=== PATIENT | male | born 1960 | race Caucasian/White ===

== ENCOUNTER 2024-12-16 12:01 | Inpatient (IN) | payer OTHER ==
[~2024-12-16] VITALS: Ht 193 cm; Wt 429.8 kg
[2024-12-16] VITALS (7 sets, daily range): BP systolic 130–181; BP diastolic 81–84; PULSE 63–64; RESP 20; TEMP 97.6–98; O2SAT 88–97
[2024-12-16 13:47] LABS: BASOPHILS % 0.3 % (0.0-1.0); EOSINOPHILS # (AUTO) 0.1 (0.0-0.4); EOSINOPHILS % 1.5 % (0.0-6.0); HEMATOCRIT 25.8 % (38.2-49.6); HEMOGLOBIN 7.9 g/dL (14.0-18.0); LYMPHOCYTES % 12.2 % (18.0-39.1); MEAN CORPUSCULAR HEMOGLOBIN 28.9 pg (28-32); MEAN CORPUSCULAR HGB CONC 30.6 g/dL (31-35); MEAN CORPUSCULAR VOLUME 94.5 fL (81-99); MONOCYTES # (AUTO) 0.5 (0.2-0.8); MONOCYTES % 6.8 % (4.4-11.3); NEUTROPHILS # (AUTO) 6.1 (2.1-6.9); NEUTROPHILS % 77.4 % (38.7-80.0); PLATELET COUNT 118 x10e3/uL (140-360); RED BLOOD COUNT 2.73 x10e6/uL (4.3-5.7); RED CELL DISTRIBUTION WIDTH 14.6 % (11.7-14.4); WHITE BLOOD COUNT 7.92 x10e3/uL (4.8-10.8)
[2024-12-16 14:18] LABS: ALBUMIN 3.1 g/dL (3.5-5.0); ALBUMIN/GLOBULIN RATIO 1.1 (0.8-2.0); ANION GAP 13.6 mmol/L (8-16); BILIRUBIN,TOTAL 0.4 mg/dL (0.2-1.2); CALCIUM 8.1 mg/dL (8.4-10.2); CREATININE, SERUM 2.66 mg/dL (0.72-1.25); POTASSIUM 4.6 mmol/L (3.5-5.1); TOTAL PROTEIN 5.8 g/dL (6.5-8.1)
[2024-12-16 14:25] LABS: TROPONIN I 0.016 ng/mL (0-0.300)
[2024-12-16] MEDS: FUROSEMIDE INJ 10 MG/ML 2 ML VIAL IV ONE (17:34)
[2024-12-16] MEDS ORDERED: ONDANSETRON HCL INJ 2MG/ML 2ML 2 MG/ML VIAL IV PRN (18:00)
[2024-12-16] MEDS ORDERED: ALPRAZOLAM 1 MG TAB PO PRN (21:00)
[2024-12-16] MEDS ORDERED: ONDANSETRON HCL 4 MG ORAL DISINTEGRATING TAB PO PRN (21:15)
[2024-12-16] MEDS ORDERED: FAMOTIDINE 20 MG TAB PO PRN (21:15)
[2024-12-16] MEDS: FUROSEMIDE INJ 10 MG/ML 4 ML VIAL IV SCH (21:42)
[2024-12-16] MEDS: ATORVASTATIN 40 MG TAB PO SCH (21:43)
[2024-12-16] MEDS: INSULIN GLARGINE 100 UNITS/ML VIAL SQ SCH (21:44)
[2024-12-17] VITALS (17 sets, daily range): BP systolic 148–191; BP diastolic 72–94; PULSE 58–76; RESP 12–20; TEMP 97.5–98.1; O2SAT 92–100
[2024-12-17 01:12] LABS: FERRITIN 85.53 ng/mL (21.81-274.66)
[2024-12-17 01:25] LABS: FOLATE 6.5 ng/mL (7.0-15.4)
[2024-12-17 06:43] LABS: BASOPHILS % 0.5 % (0.0-1.0); EOSINOPHILS # (AUTO) 0.1 (0.0-0.4); EOSINOPHILS % 1.1 % (0.0-6.0); HEMATOCRIT 28.9 % (38.2-49.6); HEMOGLOBIN 8.9 g/dL (14.0-18.0); LYMPHOCYTES # (AUTO) 0.7 (1.0-3.2); MEAN CORPUSCULAR HEMOGLOBIN 28.8 pg (28-32); MEAN CORPUSCULAR HGB CONC 30.8 g/dL (31-35); MEAN CORPUSCULAR VOLUME 93.5 fL (81-99); MONOCYTES # (AUTO) 0.4 (0.2-0.8); MONOCYTES % 5.1 % (4.4-11.3); NEUTROPHILS # (AUTO) 7.1 (2.1-6.9); NEUTROPHILS % 83.7 % (38.7-80.0); PLATELET COUNT 114 x10e3/uL (140-360); RED BLOOD COUNT 3.09 x10e6/uL (4.3-5.7); RED CELL DISTRIBUTION WIDTH 14.6 % (11.7-14.4); WHITE BLOOD COUNT 8.49 x10e3/uL (4.8-10.8)
[2024-12-17 07:15] LABS: ALBUMIN 3.2 g/dL (3.5-5.0); ANION GAP 14.1 mmol/L (8-16); BILIRUBIN,TOTAL 0.6 mg/dL (0.2-1.2); CALCIUM 8.5 mg/dL (8.4-10.2); CREATININE, SERUM 2.57 mg/dL (0.72-1.25); MAGNESIUM 2.1 MG/DL (1.3-2.1); POTASSIUM 4.1 mmol/L (3.5-5.1); TOTAL PROTEIN 6.4 g/dL (6.5-8.1)
[2024-12-17] MEDS ORDERED: POTASSIUM CHLORIDE 20 MEQ TAB CR PO SCH (09:00)
[2024-12-17] MEDS: CARVEDILOL 12.5 MG TAB PO SCH (10:09)
[2024-12-17] MEDS: CYANOCOBALAMIN 1,000 MCG TAB PO SCH (10:09)
[2024-12-17] MEDS: FOLIC ACID 1 MG TAB PO SCH (10:09)
[2024-12-17] MEDS: CLOPIDOGREL BISULFATE 75 MG TAB PO SCH (10:10)
[2024-12-17] MEDS: AMLODIPINE BESYLATE 10 MG TAB PO SCH (10:10)
[2024-12-17] MEDS: ASPIRIN 81 MG CHEW TAB PO SCH (10:10)
[2024-12-17] MEDS: FLUOXETINE HCL 20 MG CAP PO SCH (10:10)
[2024-12-17] MEDS: DOCUSATE SODIUM 100 MG CAP PO SCH (10:10)
[2024-12-17] MEDS: FERROUS SULFATE 325 MG TAB PO SCH (10:10)
[2024-12-17] MEDS: FUROSEMIDE INJ 10 MG/ML 4 ML VIAL IV STA (10:17)
[2024-12-17] MEDS: BUMETANIDE 10 MG in SODIUM CHLORIDE 0.9% 60 ML IV SCH (10:38)
[2024-12-17 12:34] LABS: ABG HCO3 30 mmol/L (22-26); ABG PCO2 59 mmHg (35-45); ABG PH 7.32 (7.35-7.45); ABG PO2 62 mmHg (80-105); ABG TCO2 32
[2024-12-17] MEDS: ALPRAZOLAM 1 MG TAB PO PRN (15:07)
[2024-12-17] MEDS: HEPARIN SOD (PORCINE) 5,000 UNIT/ML VIAL SC SCH (15:07)
[2024-12-17] MEDS: DEXMEDETOMIDINE 400MCG/NS100ML 100 ML IV PRN (20:34)
[2024-12-18] VITALS (34 sets, daily range): BP systolic 145–200; BP diastolic 67–99; PULSE 53–78; RESP 11–23; TEMP 97.9–98.4; O2SAT 86–100
[2024-12-18 07:12] LABS: BASOPHILS % 0.2 % (0.0-1.0); EOSINOPHILS % 0.7 % (0.0-6.0); HEMATOCRIT 27.1 % (38.2-49.6); HEMOGLOBIN 8.5 g/dL (14.0-18.0); LYMPHOCYTES # (AUTO) 0.7 (1.0-3.2); LYMPHOCYTES % 10.7 % (18.0-39.1); MEAN CORPUSCULAR HGB CONC 31.4 g/dL (31-35); MEAN CORPUSCULAR VOLUME 92.5 fL (81-99); MONOCYTES # (AUTO) 0.4 (0.2-0.8); NEUTROPHILS % 80.7 % (38.7-80.0); PLATELET COUNT 102 x10e3/uL (140-360); RED BLOOD COUNT 2.93 x10e6/uL (4.3-5.7); RED CELL DISTRIBUTION WIDTH 14.2 % (11.7-14.4); WHITE BLOOD COUNT 6.14 x10e3/uL (4.8-10.8)
[2024-12-18 07:36] LABS: ALBUMIN 2.9 g/dL (3.5-5.0); ALBUMIN/GLOBULIN RATIO 0.9 (0.8-2.0); ANION GAP 13.7 mmol/L (8-16); BILIRUBIN,TOTAL 0.6 mg/dL (0.2-1.2); CALCIUM 8.5 mg/dL (8.4-10.2); CREATININE, SERUM 2.3 mg/dL (0.72-1.25); MAGNESIUM 2.2 MG/DL (1.3-2.1); PHOSPHORUS 4.2 MG/DL (2.3-4.7); POTASSIUM 3.7 mmol/L (3.5-5.1)
[2024-12-18] MEDS: POTASSIUM CHLORIDE 20 MEQ TAB CR PO ONE (08:39)
[2024-12-18] MEDS: BUMETANIDE 10 MG in SODIUM CHLORIDE 0.9% 60 ML IV SCH (10:22)
[2024-12-18 10:34] LABS: INR 1.09; PROTHROMBIN TIME 14.8 seconds (11.9-14.5)
[2024-12-18] MEDS: HYDRALAZINE HCL 20 MG/ML VIAL IV PRN (12:33)
[2024-12-18 13:16] LABS: TOTAL PROTEIN, URINE 69.9 mg/dL (1-14)
[2024-12-18 14:05] LABS: BODY FLUID APPEARANCE CLOUDY; BODY FLUID COLOR YELLOW; BODY FLUID TYPE PLEURAL; RBC,BODY FLUID 2000 cells/uL; WBC,BODY FLUID 79 cells/uL
[2024-12-18 14:10] LABS: LYMPHOCYTES,BODY FLUID 54 %; MONO/MACROPHG,BODY FLUID 31 %; NEUTROPHILS,BODY FLUID 3 %; OTHER CELLS,BODY FLUID 12 %; TOTAL CELLS COUNTED (DIFF) 100
[2024-12-18] MEDS: HYDRALAZINE HCL 20 MG/ML VIAL IV ONE (15:47)
[2024-12-19] VITALS (23 sets, daily range): BP systolic 139–179; BP diastolic 60–84; PULSE 57–71; RESP 11–25; TEMP 97.9–98.4; O2SAT 96–100
[2024-12-19 07:24] LABS: BASOPHILS % 0.4 % (0.0-1.0); EOSINOPHILS % 0.8 % (0.0-6.0); HEMOGLOBIN 8.3 g/dL (14.0-18.0); LYMPHOCYTES # (AUTO) 0.7 (1.0-3.2); LYMPHOCYTES % 12.4 % (18.0-39.1); MEAN CORPUSCULAR HEMOGLOBIN 28.4 pg (28-32); MEAN CORPUSCULAR HGB CONC 31.9 g/dL (31-35); MONOCYTES # (AUTO) 0.4 (0.2-0.8); MONOCYTES % 7.1 % (4.4-11.3); NEUTROPHILS # (AUTO) 4.1 (2.1-6.9); NEUTROPHILS % 78.7 % (38.7-80.0); PLATELET COUNT 108 x10e3/uL (140-360); RED BLOOD COUNT 2.92 x10e6/uL (4.3-5.7); RED CELL DISTRIBUTION WIDTH 14.6 % (11.7-14.4); WHITE BLOOD COUNT 5.23 x10e3/uL (4.8-10.8)
[2024-12-19 07:51] LABS: PHOSPHORUS 3.6 MG/DL (2.3-4.7)
[2024-12-19 07:54] LABS: ALBUMIN 2.7 g/dL (3.5-5.0); ALBUMIN/GLOBULIN RATIO 0.9 (0.8-2.0); ANION GAP 11.5 mmol/L (8-16); BILIRUBIN,TOTAL 0.7 mg/dL (0.2-1.2); CALCIUM 8.6 mg/dL (8.4-10.2); CREATININE, SERUM 2.16 mg/dL (0.72-1.25); POTASSIUM 3.5 mmol/L (3.5-5.1); TOTAL PROTEIN 5.7 g/dL (6.5-8.1)
[2024-12-19 08:13] LABS: ABG HCO3 30 mmol/L (22-26); ABG PCO2 59 mmHg (35-45); ABG PH 7.32 (7.35-7.45); ABG PO2 62 mmHg (80-105); ABG TCO2 32
[2024-12-19 08:57] LABS: CREATININE,URINE RANDOM 22.27 mg/dL (63-166)
[2024-12-19] MEDS: HYDRALAZINE HCL 25 MG TAB PO SCH (09:00)
[2024-12-19] MEDS: ACETAMINOPHEN 325 MG TAB PO PRN (11:56)
[2024-12-19] MEDS: POTASSIUM CHLORIDE 20MEQ/100ML 200 ML IV ONE (11:57)
[2024-12-19 13:53] LABS: TOTAL PROTEIN,BODY FLUID 1.5 g/dL
[2024-12-19] MEDS: BUMETANIDE 1 MG TAB PO SCH (15:26)
[2024-12-19] MEDS: ALPRAZOLAM 0.5 MG TAB PO PRN (20:12)
[2024-12-19] MEDS: MELATONIN 5 MG TABLET PO PRN (23:51)
[2024-12-20] VITALS (31 sets, daily range): BP systolic 140–208; BP diastolic 58–88; PULSE 53–82; RESP 8–22; TEMP 97.2–98.4; O2SAT 91–99
[2024-12-20 06:55] LABS: HEMATOCRIT 24.8 % (38.2-49.6); HEMOGLOBIN 7.9 g/dL (14.0-18.0); MEAN CORPUSCULAR HEMOGLOBIN 28.7 pg (28-32); MEAN CORPUSCULAR HGB CONC 31.9 g/dL (31-35); MEAN CORPUSCULAR VOLUME 90.2 fL (81-99); NEUTROPHILS % 75.4 % (38.7-80.0); PLATELET COUNT 112 x10e3/uL (140-360); RED BLOOD COUNT 2.7 x10e6/uL (4.3-5.7); RED CELL DISTRIBUTION WIDTH 14.3 % (11.7-14.4); WHITE BLOOD COUNT 5.84 x10e3/uL (4.8-10.8)
[2024-12-20 06:56] LABS: BASOPHILS % 0.3 % (0.0-1.0); EOSINOPHILS # (AUTO) 0.2 (0.0-0.4); EOSINOPHILS % 3.3 % (0.0-6.0); LYMPHOCYTES # (AUTO) 0.8 (1.0-3.2); LYMPHOCYTES % 13.9 % (18.0-39.1); MONOCYTES # (AUTO) 0.4 (0.2-0.8); MONOCYTES % 6.8 % (4.4-11.3); NEUTROPHILS # (AUTO) 4.4 (2.1-6.9)
[2024-12-20 07:44] LABS: ANION GAP 12.4 mmol/L (8-16); POTASSIUM 3.4 mmol/L (3.5-5.1)
[2024-12-20 07:45] LABS: ALBUMIN 2.5 g/dL (3.5-5.0); ALBUMIN/GLOBULIN RATIO 0.8 (0.8-2.0); BILIRUBIN,TOTAL 0.6 mg/dL (0.2-1.2); BLOOD UREA NITROGEN 22.68 mg/dL (7-26); CALCIUM 8.7 mg/dL (8.4-10.2); CREATININE, SERUM 2.16 mg/dL (0.72-1.25); MAGNESIUM 1.9 MG/DL (1.3-2.1); TOTAL PROTEIN 5.6 g/dL (6.5-8.1)
[2024-12-20] MEDS: ISOSORBIDE DINITRATE 20 MG TAB PO SCH (10:35)
[2024-12-20] MEDS: POTASSIUM CHLORIDE 20MEQ/100ML 200 ML IV ONE (10:38)
[2024-12-20] MEDS: BUMETANIDE 10 MG in SODIUM CHLORIDE 0.9% 60 ML IV SCH (10:59)
[2024-12-20] MEDS: OXYMETAZOLINE HCL 0.05% NAS 1 SPRAY BTL SCH (11:16)
[2024-12-20] MEDS: CLONIDINE HCL 0.1 MG TAB PO PRN (18:04)
[2024-12-20] MEDS: QUETIAPINE FUMARATE 100 MG TAB PO SCH (20:20)
[2024-12-20] MEDS ORDERED: CLONIDINE HCL 0.1 MG TAB PO PRN (22:00)
[2024-12-20] MEDS: CLONIDINE HCL 0.2 MG TAB PO SCH (22:44)
[2024-12-21] VITALS (28 sets, daily range): BP systolic 140–218; BP diastolic 65–101; PULSE 51–70; RESP 9–21; TEMP 97.8–98.1; O2SAT 86–100
[2024-12-21 07:44] LABS: BASOPHILS % 0.4 % (0.0-1.0); EOSINOPHILS # (AUTO) 0.2 (0.0-0.4); EOSINOPHILS % 3.6 % (0.0-6.0); LYMPHOCYTES # (AUTO) 0.7 (1.0-3.2); LYMPHOCYTES % 13.2 % (18.0-39.1); MEAN CORPUSCULAR HEMOGLOBIN 28.3 pg (28-32); MEAN CORPUSCULAR HGB CONC 32.5 g/dL (31-35); MEAN CORPUSCULAR VOLUME 87.1 fL (81-99); MONOCYTES # (AUTO) 0.4 (0.2-0.8); MONOCYTES % 7.3 % (4.4-11.3); NEUTROPHILS % 74.9 % (38.7-80.0); PLATELET COUNT 122 x10e3/uL (140-360); RED BLOOD COUNT 3.11 x10e6/uL (4.3-5.7); RED CELL DISTRIBUTION WIDTH 14.5 % (11.7-14.4); WHITE BLOOD COUNT 5.32 x10e3/uL (4.8-10.8)
[2024-12-21 07:53] LABS: ALBUMIN 2.8 g/dL (3.5-5.0); ALBUMIN/GLOBULIN RATIO 0.8 (0.8-2.0); ANION GAP 13.4 mmol/L (8-16); BILIRUBIN,TOTAL 0.6 mg/dL (0.2-1.2); CALCIUM 9.3 mg/dL (8.4-10.2); CREATININE, SERUM 2.1 mg/dL (0.72-1.25); TOTAL PROTEIN 6.3 g/dL (6.5-8.1)
[2024-12-21 07:56] LABS: HEMATOCRIT 27.4 % (38.2-49.6); HEMOGLOBIN 8.9 g/dL (14.0-18.0)
[2024-12-21 08:27] LABS: POTASSIUM 3.4 mmol/L (3.5-5.1)
[2024-12-21] MEDS: HYDRALAZINE HCL 100 MG TABLET PO SCH (20:29)
[2024-12-21] MEDS ORDERED: Morphine 2mg Syringe 2 MG/ML SYR IV PRN (22:30)
[2024-12-22] VITALS (27 sets, daily range): BP systolic 103–169; BP diastolic 57–81; PULSE 56–65; RESP 10–19; TEMP 98–98.5; O2SAT 93–100
[2024-12-22 06:21] LABS: BASOPHILS % 0.5 % (0.0-1.0); EOSINOPHILS # (AUTO) 0.2 (0.0-0.4); EOSINOPHILS % 4.7 % (0.0-6.0); HEMATOCRIT 22.8 % (38.2-49.6); HEMOGLOBIN 7.4 g/dL (14.0-18.0); LYMPHOCYTES # (AUTO) 0.7 (1.0-3.2); LYMPHOCYTES % 19.1 % (18.0-39.1); MEAN CORPUSCULAR HEMOGLOBIN 28.6 pg (28-32); MEAN CORPUSCULAR HGB CONC 32.5 g/dL (31-35); MONOCYTES # (AUTO) 0.3 (0.2-0.8); MONOCYTES % 7.6 % (4.4-11.3); NEUTROPHILS # (AUTO) 2.6 (2.1-6.9); NEUTROPHILS % 68.1 % (38.7-80.0); PLATELET COUNT 99 x10e3/uL (140-360); RED BLOOD COUNT 2.59 x10e6/uL (4.3-5.7); RED CELL DISTRIBUTION WIDTH 14.1 % (11.7-14.4); WHITE BLOOD COUNT 3.83 x10e3/uL (4.8-10.8)
[2024-12-22 06:55] LABS: ALBUMIN 2.5 g/dL (3.5-5.0); ALBUMIN/GLOBULIN RATIO 0.9 (0.8-2.0); ANION GAP 13.4 mmol/L (8-16); BILIRUBIN,TOTAL 0.4 mg/dL (0.2-1.2); CREATININE, SERUM 2.19 mg/dL (0.72-1.25); TOTAL PROTEIN 5.4 g/dL (6.5-8.1)
[2024-12-22 07:00] LABS: POTASSIUM 3.4 mmol/L (3.5-5.1)
[2024-12-23] VITALS (30 sets, daily range): BP systolic 135–165; BP diastolic 57–80; PULSE 52–60; RESP 9–17; TEMP 97.8–98.3; O2SAT 92–100
[2024-12-23 06:10] LABS: BASOPHILS % 0.4 % (0.0-1.0); EOSINOPHILS # (AUTO) 0.2 (0.0-0.4); EOSINOPHILS % 4.4 % (0.0-6.0); HEMATOCRIT 24.6 % (38.2-49.6); HEMOGLOBIN 8.1 g/dL (14.0-18.0); LYMPHOCYTES # (AUTO) 0.7 (1.0-3.2); MEAN CORPUSCULAR HEMOGLOBIN 28.6 pg (28-32); MEAN CORPUSCULAR HGB CONC 32.9 g/dL (31-35); MEAN CORPUSCULAR VOLUME 86.9 fL (81-99); MONOCYTES # (AUTO) 0.3 (0.2-0.8); MONOCYTES % 6.5 % (4.4-11.3); NEUTROPHILS # (AUTO) 3.4 (2.1-6.9); NEUTROPHILS % 73.5 % (38.7-80.0); PLATELET COUNT 102 x10e3/uL (140-360); RED BLOOD COUNT 2.83 x10e6/uL (4.3-5.7); RED CELL DISTRIBUTION WIDTH 13.8 % (11.7-14.4); WHITE BLOOD COUNT 4.59 x10e3/uL (4.8-10.8)
[2024-12-23 06:31] LABS: ANION GAP 12.3 mmol/L (8-16); CALCIUM 9.1 mg/dL (8.4-10.2); CREATININE, SERUM 2.07 mg/dL (0.72-1.25)
[2024-12-23 06:32] LABS: POTASSIUM 3.3 mmol/L (3.5-5.1)
[2024-12-23] MEDS: POTASSIUM CHLORIDE 20 MEQ TAB CR PO STA (07:34)
[2024-12-23] MEDS: POLYETHYLENE GLYCOL 3350 17 GM PACK PO SCH (10:12)
[2024-12-23] MEDS: SPIRONOLACTONE 25 MG TAB PO ONE (11:25)
[2024-12-23] MEDS: POTASSIUM CHLORIDE 20MEQ/100ML 200 ML IV ONE (11:26)
[2024-12-23] MEDS: ALPRAZOLAM 0.5 MG TAB PO PRN (20:37)
[2024-12-24] VITALS (26 sets, daily range): BP systolic 107–175; BP diastolic 61–103; PULSE 51–59; RESP 8–22; TEMP 97.8–98.2; O2SAT 87–100
[2024-12-24 07:04] LABS: BASOPHILS % 0.4 % (0.0-1.0); EOSINOPHILS # (AUTO) 0.2 (0.0-0.4); EOSINOPHILS % 3.9 % (0.0-6.0); HEMATOCRIT 24.9 % (38.2-49.6); HEMOGLOBIN 8.2 g/dL (14.0-18.0); LYMPHOCYTES # (AUTO) 0.7 (1.0-3.2); LYMPHOCYTES % 14.8 % (18.0-39.1); MEAN CORPUSCULAR HEMOGLOBIN 28.5 pg (28-32); MEAN CORPUSCULAR HGB CONC 32.9 g/dL (31-35); MEAN CORPUSCULAR VOLUME 86.5 fL (81-99); MONOCYTES # (AUTO) 0.3 (0.2-0.8); MONOCYTES % 6.5 % (4.4-11.3); NEUTROPHILS # (AUTO) 3.7 (2.1-6.9); NEUTROPHILS % 74.2 % (38.7-80.0); PLATELET COUNT 103 x10e3/uL (140-360); RED BLOOD COUNT 2.88 x10e6/uL (4.3-5.7); RED CELL DISTRIBUTION WIDTH 13.8 % (11.7-14.4); WHITE BLOOD COUNT 4.92 x10e3/uL (4.8-10.8)
[2024-12-24 07:27] LABS: ALBUMIN 2.7 g/dL (3.5-5.0); ALBUMIN/GLOBULIN RATIO 0.8 (0.8-2.0); ANION GAP 13.7 mmol/L (8-16); BILIRUBIN,TOTAL 0.4 mg/dL (0.2-1.2); CALCIUM 9.3 mg/dL (8.4-10.2); CREATININE, SERUM 2.21 mg/dL (0.72-1.25); MAGNESIUM 2.1 MG/DL (1.3-2.1); PHOSPHORUS 4.3 MG/DL (2.3-4.7); POTASSIUM 3.7 mmol/L (3.5-5.1); TOTAL PROTEIN 5.9 g/dL (6.5-8.1)
[2024-12-24] MEDS: BISACODYL 10 MG SUPP PR ONE (08:55)
[2024-12-24] MEDS: SPIRONOLACTONE 25 MG TAB PO SCH (08:57)
[2024-12-24] MEDS: METOLAZONE 5 MG TAB PO SCH (08:57)
[2024-12-25] VITALS (18 sets, daily range): BP systolic 124–175; BP diastolic 66–101; PULSE 50–74; RESP 10–23; TEMP 97.4–98; O2SAT 81–100
[2024-12-25 07:00] LABS: BASOPHILS % 0.4 % (0.0-1.0); EOSINOPHILS # (AUTO) 0.2 (0.0-0.4); EOSINOPHILS % 3.8 % (0.0-6.0); HEMATOCRIT 27.5 % (38.2-49.6); LYMPHOCYTES # (AUTO) 0.7 (1.0-3.2); LYMPHOCYTES % 15.1 % (18.0-39.1); MEAN CORPUSCULAR HEMOGLOBIN 28.3 pg (28-32); MEAN CORPUSCULAR HGB CONC 32.7 g/dL (31-35); MEAN CORPUSCULAR VOLUME 86.5 fL (81-99); MONOCYTES # (AUTO) 0.4 (0.2-0.8); MONOCYTES % 8.4 % (4.4-11.3); NEUTROPHILS # (AUTO) 3.4 (2.1-6.9); NEUTROPHILS % 71.9 % (38.7-80.0); PLATELET COUNT 114 x10e3/uL (140-360); RED BLOOD COUNT 3.18 x10e6/uL (4.3-5.7); RED CELL DISTRIBUTION WIDTH 13.5 % (11.7-14.4); WHITE BLOOD COUNT 4.77 x10e3/uL (4.8-10.8)
[2024-12-25 07:22] LABS: ALBUMIN 2.9 g/dL (3.5-5.0); ALBUMIN/GLOBULIN RATIO 0.9 (0.8-2.0); ANION GAP 14.5 mmol/L (8-16); BILIRUBIN,TOTAL 0.5 mg/dL (0.2-1.2); CALCIUM 10.1 mg/dL (8.4-10.2); CREATININE, SERUM 2.41 mg/dL (0.72-1.25); POTASSIUM 3.5 mmol/L (3.5-5.1); TOTAL PROTEIN 6.3 g/dL (6.5-8.1)
[2024-12-25] MEDS: BUMETANIDE INJ 0.25MG/ML 4ML VIAL IV SCH (10:33)
[2024-12-25] MEDS: TRAMADOL HCL 50 MG TAB PO PRN (17:05)
[2024-12-26] VITALS (10 sets, daily range): BP systolic 134–161; BP diastolic 65–77; PULSE 53–68; RESP 16–20; TEMP 97.3–98; O2SAT 95–100
[2024-12-26 05:50] LABS: BASOPHILS % 0.4 % (0.0-1.0); EOSINOPHILS # (AUTO) 0.2 (0.0-0.4); EOSINOPHILS % 3.2 % (0.0-6.0); HEMATOCRIT 25.9 % (38.2-49.6); HEMOGLOBIN 8.5 g/dL (14.0-18.0); LYMPHOCYTES # (AUTO) 0.8 (1.0-3.2); MEAN CORPUSCULAR HEMOGLOBIN 27.8 pg (28-32); MEAN CORPUSCULAR HGB CONC 32.8 g/dL (31-35); MEAN CORPUSCULAR VOLUME 84.6 fL (81-99); MONOCYTES # (AUTO) 0.4 (0.2-0.8); NEUTROPHILS % 74.2 % (38.7-80.0); PLATELET COUNT 123 x10e3/uL (140-360); RED BLOOD COUNT 3.06 x10e6/uL (4.3-5.7); RED CELL DISTRIBUTION WIDTH 13.5 % (11.7-14.4); WHITE BLOOD COUNT 5.37 x10e3/uL (4.8-10.8)
[2024-12-26 06:26] LABS: ALBUMIN 2.7 g/dL (3.5-5.0); ALBUMIN/GLOBULIN RATIO 0.8 (0.8-2.0); ANION GAP 17.5 mmol/L (8-16); BILIRUBIN,TOTAL 0.5 mg/dL (0.2-1.2); CALCIUM 9.9 mg/dL (8.4-10.2); CREATININE, SERUM 2.77 mg/dL (0.72-1.25); MAGNESIUM 2.3 MG/DL (1.3-2.1); POTASSIUM 3.5 mmol/L (3.5-5.1)
[2024-12-26] MEDS: BUMETANIDE 1 MG TAB PO SCH (10:42)
[2024-12-26] MEDS: AMLODIPINE BESYLATE 10 MG TAB PO SCH (11:37)
[2024-12-27] VITALS (9 sets, daily range): BP systolic 100–161; BP diastolic 59–77; PULSE 50–56; RESP 17–20; TEMP 97.3–98.4; O2SAT 92–100
[2024-12-27 06:12] LABS: ANION GAP 13.4 mmol/L (8-16); CALCIUM 9.5 mg/dL (8.4-10.2); CREATININE, SERUM 2.91 mg/dL (0.72-1.25)
[2024-12-27 06:14] LABS: POTASSIUM 3.4 mmol/L (3.5-5.1)
[2024-12-27] MEDS: MUPIROCIN 2% OINT 22 GM TUBE TOP SCH (09:00)
[2024-12-27] MEDS: CLOTRIMAZOLE/BETAMETHASONE 45 GM CR TP SCH (09:27)
[2024-12-28] VITALS (9 sets, daily range): BP systolic 114–148; BP diastolic 55–72; PULSE 52–60; RESP 18–20; TEMP 97.4–98.6; O2SAT 92–98
[2024-12-28 06:46] LABS: ANION GAP 16.4 mmol/L (8-16); CALCIUM 9.7 mg/dL (8.4-10.2); CREATININE, SERUM 3.21 mg/dL (0.72-1.25)
[2024-12-28 06:53] LABS: POTASSIUM 3.4 mmol/L (3.5-5.1)
[2024-12-28] MEDS: BUMETANIDE 1 MG TAB PO SCH (09:21)
[2024-12-28] MEDS: SODIUM CHLORIDE 0.9% 250ML 250 ML IV ONE (11:35)
[2024-12-29] VITALS (11 sets, daily range): BP systolic 107–156; BP diastolic 63–75; PULSE 53–63; RESP 18–21; TEMP 97.3–98.2; O2SAT 94–100
[2024-12-29 05:33] LABS: BASOPHILS % 0.2 % (0.0-1.0); EOSINOPHILS # (AUTO) 0.2 (0.0-0.4); EOSINOPHILS % 3.6 % (0.0-6.0); HEMATOCRIT 26.9 % (38.2-49.6); LYMPHOCYTES % 20.9 % (18.0-39.1); MEAN CORPUSCULAR HGB CONC 33.5 g/dL (31-35); MEAN CORPUSCULAR VOLUME 83.8 fL (81-99); MONOCYTES # (AUTO) 0.5 (0.2-0.8); MONOCYTES % 11.1 % (4.4-11.3); PLATELET COUNT 166 x10e3/uL (140-360); RED BLOOD COUNT 3.21 x10e6/uL (4.3-5.7); RED CELL DISTRIBUTION WIDTH 13.2 % (11.7-14.4); WHITE BLOOD COUNT 4.69 x10e3/uL (4.8-10.8)
[2024-12-29 06:01] LABS: ALBUMIN 2.8 g/dL (3.5-5.0); ALBUMIN/GLOBULIN RATIO 0.8 (0.8-2.0); BILIRUBIN,TOTAL 0.4 mg/dL (0.2-1.2); CALCIUM 9.4 mg/dL (8.4-10.2); CREATININE, SERUM 3.27 mg/dL (0.72-1.25); POTASSIUM 3.5 mmol/L (3.5-5.1); TOTAL PROTEIN 6.1 g/dL (6.5-8.1)
[2024-12-29 06:10] LABS: ANION GAP 16.5 mmol/L (8-16)
[2024-12-29] MEDS: HEPARIN SOD (PORCINE) 5,000 UNIT/ML VIAL SC SCH (17:01)
[2024-12-30] VITALS (10 sets, daily range): BP systolic 117–147; BP diastolic 55–72; PULSE 51–89; RESP 17–20; TEMP 97.6–98.3; O2SAT 95–99
[2024-12-30 07:09] LABS: ALBUMIN 2.9 g/dL (3.5-5.0); ALBUMIN/GLOBULIN RATIO 0.9 (0.8-2.0); ANION GAP 17.4 mmol/L (8-16); BILIRUBIN,TOTAL 0.4 mg/dL (0.2-1.2); CALCIUM 9.5 mg/dL (8.4-10.2); CREATININE, SERUM 3.32 mg/dL (0.72-1.25); MAGNESIUM 2.5 MG/DL (1.3-2.1); TOTAL PROTEIN 6.2 g/dL (6.5-8.1)
[2024-12-30 07:12] LABS: POTASSIUM 3.4 mmol/L (3.5-5.1)
[2024-12-30] MEDS: SODIUM CHLORIDE 0.9% 500ML 500 ML IV ONE (10:00)
[2024-12-30] MEDS: BUMETANIDE 1 MG TAB PO SCH (16:04)
[2024-12-30] MEDS ORDERED: Ferrous Sulfate PO (16:23)
[2024-12-30] MEDS ORDERED: Insulin Glargine SQ (16:23)
[2024-12-30] MEDS ORDERED: MUPIROCIN22 GM TOP (16:23)
[2024-12-30] MEDS ORDERED: LASIX20 MG PO (16:23)
[2024-12-30] MEDS ORDERED: HYDRALAZINE HC100 MG PO (16:23)
[2024-12-30] MEDS ORDERED: NORVASC10 MG PO (16:23)
[2024-12-30] MEDS ORDERED: COREG12.5 MG PO (16:23)
[2024-12-30] MEDS ORDERED: PLAVIX75 MG PO (16:23)
[2024-12-30] MEDS ORDERED: SEROQUEL100 MG PO (16:23)
[2024-12-30] MEDS ORDERED: CLONIDINE HCL0.2 MG PO (16:23)
[2024-12-30] MEDS ORDERED: FLUOXETINE HCL20 MG PO (16:23)
[2024-12-30] MEDS ORDERED: ISORDIL20 MG PO (16:23)
[2024-12-30] MEDS ORDERED: MIRALAX17 GM PO (16:23)
[2024-12-30] MEDS ORDERED: CLOTRIMAZOLE-BE15 GM TP (16:23)
[2024-12-30] MEDS ORDERED: ASPIRIN CHEW81 MG PO (16:23)
[2024-12-30] MEDS ORDERED: ACETAMINOPHEN325 M1 PO (16:23)
[2024-12-30] MEDS ORDERED: Folic Acid PO (16:23)
[2024-12-30] MEDS ORDERED: B-121000 MC1 PO (16:23)
[2024-12-30] MEDS ORDERED: Docusate Sodium PO (16:23)
[2024-12-30] MEDS ORDERED: FEROSUL325 MG PO (16:24)
[2024-12-30] MEDS ORDERED: LANTUS 3ML100 UNITS/ SC (16:24)
== END 2024-12-30 22:54 | DRG 291 ==
LOC: ER 12:11 → ERHOLD 17:54 → MED/SURG3 19:48 → ICU 12-17 12:38 → MED/SURG2 12-25 13:47
PROVIDERS: ADMIT Family Medicine Adult Medicine; ATTEND Family Medicine Adult Medicine
PROC: 4A133R1 Monitoring of Arterial Saturation, Peripheral, Percutaneous Approach (ICD-10-PCS; principal; 2024-12-17)
PROC: 0T9B70Z Drainage of Bladder with Drainage Device, Via Natural or Artificial Opening (ICD-10-PCS; 2024-12-17)
PROC: 5A09357 Assistance with Respiratory Ventilation, Less than 24 Consecutive Hours, Continuous Positive Airway Pressure (ICD-10-PCS; 2024-12-17)
PROC: 0W993ZZ Drainage of Right Pleural Cavity, Percutaneous Approach (ICD-10-PCS; 2024-12-18)
PROC: 5A0935A Assistance with Respiratory Ventilation, Less than 24 Consecutive Hours, High Flow/Velocity Cannula (ICD-10-PCS; 2024-12-19)
DX: I13.0 Hypertensive heart and chronic kidney disease with heart failure and stage 1 through stage 4 chronic kidney disease, or unspecified chronic kidney disease (principal); I50.43 Acute on chronic combined systolic (congestive) and diastolic (congestive) heart failure; J96.02 Acute respiratory failure with hypercapnia; J96.01 Acute respiratory failure with hypoxia; J18.9 Pneumonia, unspecified organism; J90 Pleural effusion, not elsewhere classified; J44.1 Chronic obstructive pulmonary disease with (acute) exacerbation; N17.9 Acute kidney failure, unspecified; E66.2 Morbid (severe) obesity with alveolar hypoventilation; Z68.42 Body mass index [BMI] 45.0-49.9, adult; I27.20 Pulmonary hypertension, unspecified; Z99.81 Dependence on supplemental oxygen; E11.22 Type 2 diabetes mellitus with diabetic chronic kidney disease; N18.32 Chronic kidney disease, stage 3b; E11.65 Type 2 diabetes mellitus with hyperglycemia; D63.1 Anemia in chronic kidney disease; I25.10 Atherosclerotic heart disease of native coronary artery without angina pectoris; D50.9 Iron deficiency anemia, unspecified; E78.5 Hyperlipidemia, unspecified; E53.8 Deficiency of other specified B group vitamins; N47.6 Balanoposthitis; F41.9 Anxiety disorder, unspecified; F32.A Depression, unspecified; M54.9 Dorsalgia, unspecified; E11.319 Type 2 diabetes mellitus with unspecified diabetic retinopathy without macular edema; Z95.5 Presence of coronary angioplasty implant and graft; H54.8 Legal blindness, as defined in USA; Z90.49 Acquired absence of other specified parts of digestive tract; Z99.3 Dependence on wheelchair; Z88.0 Allergy status to penicillin
CPT/HCPCS: 32555; 36415; 36600; 71045; 74470; 76770; 80048; 80053; 82550; 82570; 82607; 82728; 82746; 82805; 82948; 83540; 83615; 83735; 83880; 84100; 84156; 84157; 84466; 84478; 84484; 85025; 85045; 85610; 87070; 87205; 89051; 93005; 93306; 94660; 94799; 96374; 99252; 99284; C1729; J0360; J1644; J1815; J1940; J3480; J7050